=== PATIENT | female | born 1950 | race Caucasian/White ===

== ENCOUNTER 2017-06-18 12:44 | Outpatient (CLI) | payer MEDICARE, BC ==
--- NOTE | 2017-06-18 13:47 | MRI ---
MRI OF THE RIGHT SHOULDER WITHOUT CONTRAST: INDICATIONS: Rotator cuff dysfunction. COMPARISON: None. TECHNIQUE: Routine noncontrast MR images were obtained of the right shoulder. FINDINGS: There is a high grade bursal surface tear involving the entirety of the supraspinatus, at the footpri nt, with anterior tendinous delamination into the infraspinatus, at the footprint. There is delamina tion of the infraspinatus back to the level of the musculotendinous junction. No muscular atrophy is evident. The glenohumeral articular surface is normal appearing. There is moderate tendinosis of t he intraarticular biceps tendon. There is moderate to severe AC joint osteoarthrosis with an inferio rly projecting osteophyte on the distal clavicular causing mild to moderate encroachment on the subja cent supraspinatus. The subscapularis is intact. The teres minor is intact. IMPRESSION: 1. High-grade bursal surface tear of the supraspinatus with intratendinous delamination into the inf raspinatus with extension of the delaminating tear back to the musculotendinous junction of the infra spinatus. 2. Moderate to severe acromioclavicular joint osteoarthrosis with mild to moderate encroachment. 3. Moderate biceps tendinosis. POS: TPC
== END 2017-06-18 12:45 | disposition home or self-care (01) ==
LOC: MRI 12:44
PROVIDERS: ATTEND Family Medicine
DX: M67.911 Unspecified disorder of synovium and tendon, right shoulder (principal); M19.011 Primary osteoarthritis, right shoulder; M75.21 Bicipital tendinitis, right shoulder; M75.101 Unspecified rotator cuff tear or rupture of right shoulder, not specified as traumatic

== ENCOUNTER 2017-11-21 12:18 | Outpatient (CLI) | payer MEDICARE, BC | END 2017-11-21 12:19 | disposition home or self-care (01) | LOC: BICMAMMO 12:18 | PROVIDERS: ATTEND Obstetrics & Gynecology | DX: Z12.31 Encounter for screening mammogram for malignant neoplasm of breast (principal) | CPT/HCPCS: 77063; 77067 ==

== ENCOUNTER 2018-02-13 08:14 | Outpatient (CLI) | payer MEDICARE, BC ==
--- NOTE | 2018-02-13 10:30 | BD ---
DEXA BONE DENSITY STUDY: HISTORY: Postmenopausal Lumbar Spine: BMD (g/cm2) L1 1.041 T-Score: +0.5 L2 1.140 T-Score: +1.0 L3 1.215 T-Score: +1.2 L4 1.192 T-Score: +1.2 L1-L4 1.148 T-Score: +0.9 Femoral Neck: 0.837 T-Score: -0.1 Total Femur: 1.062 T-Score: +1.0 Impression: 1. Normal bone mineral density of lumbar spine and left femoral neck. 2. Ten-year fracture major osteoporotic fracture is 6.9% and of hip fracture 0.3%. These fracture p robabilities are calculated for an untreated patient. POS: ALE
== END 2018-02-13 08:15 | disposition home or self-care (01) ==
LOC: BICMAMMO 08:14
PROVIDERS: ATTEND Family Medicine
DX: Z13.820 Encounter for screening for osteoporosis (principal); Z78.0 Asymptomatic menopausal state
CPT/HCPCS: 77080

== ENCOUNTER 2018-02-24 09:01 | Outpatient (CLI) | payer MEDICARE, BC ==
[2018-02-24 10:18] LABS: Hemoglobin 14.6 g/dL (12.0-16.0); Mean Corpuscular HGB CONC 33.7 g/dL (32.0-36.0); Mean Corpuscular Hemoglobin 30.1 pg (27.0-31.0); Mean Corpuscular Volume 89.1 fL (78.0-98.0); Mean Platelet Volume 7.4 fL (7.4-10.4); Platelet Count 137 thou/uL (130-400); RBC Distribution Width 13.3 % (11.5-14.5); Red Blood Cell (RBC) Count 4.85 mill/uL (4.20-5.40); White Blood Cell (WBC) Count 4.2 thou/uL (4.8-10.8)
[2018-02-24 10:39] LABS: Anion Gap 12 mmol/L (10-20); BUN (Urea Nitrogen) 17 mg/dL (9.8-20.1); Calc. Creatinine Clearance 0 mL/min (70-130); Calcium 10.2 mg/dL (7.8-10.44); Carbon Dioxide 28 mmol/L (23-31); Chloride 104 mmol/L (98-107); Estimated GFR-MDRD 61; Glucose 240 mg/dL (80-115); Potassium 4.4 mmol/L (3.5-5.1); Sodium 140 mmol/L (136-145)
[2018-02-24 10:45] LABS: INR-International Normal Ratio 1.1; PTT 30.4 SEC (22.9-36.1); Prothrombin Time 13.9 SEC (12.0-14.7)
== END 2018-02-24 09:02 | disposition home or self-care (01) ==
LOC: LABBT 09:01
PROVIDERS: ATTEND Surgery
DX: Z01.818 Encounter for other preprocedural examination (principal); M48.02 Spinal stenosis, cervical region; M54.12 Radiculopathy, cervical region
CPT/HCPCS: 80048; 85027; 85610; 85730; 87081; 93005; 93010

== ENCOUNTER 2018-03-03 05:46 | Day surgery (SDC) | payer MEDICARE, BC ==
[2018-02-24 09:12] VITALS: BMI 30.9
[2018-03-03] MEDS ORDERED: CEFAZOLIN/Water 2 GM/20 ML SYRINGE ONE (06:07)
[2018-03-03] MEDS ORDERED: Sodium Chloride 0.9% 10 ML ONE (06:31)
[2018-03-03] MEDS ORDERED: Thrombin 5000 UNITS/5 ML VIAL ONE (06:31)
[2018-03-03] MEDS ORDERED: Midazolam HCl 2 mg/2 ml Vial ONE (07:09)
[2018-03-03] MEDS ORDERED: Fentanyl 100 MCG/2 ML VIAL ONE ×3 (07:25→11:40)
[2018-03-03] MEDS ORDERED: Atropine Sulfate 0.4 mg/1 ml Vial ONE ×3 (07:47→16:31)
[2018-03-03] MEDS ORDERED: Atropine Sulfate 1 mg/10 ml Syringe ONE (07:47)
[2018-03-03] MEDS ORDERED: Promethazine HCl 25 MG/ML VIAL SLOW IVP PRN (09:19)
[2018-03-03] MEDS ORDERED: PACU-Morphine 4MG/ML VIAL SLOW IVP PRN (09:19)
[2018-03-03] MEDS ORDERED: Morphine Sulfate 2 MG/ML SYRINGE SLOW IVP PRN (09:19)
[2018-03-03] MEDS ORDERED: Promethazine HCl 25 MG/ML VIAL IM PRN ×2 (09:19→09:59)
[2018-03-03] MEDS ORDERED: Ondansetron HCl/PF 4 MG/2 ML Vial IVP PRN (09:19)
[2018-03-03] MEDS ORDERED: HYDROmorphone 2 MG/ML VIAL SLOW IVP PRN (09:19)
[2018-03-03] MEDS ORDERED: Meperidine HCl/PF 25 MG/ML VIAL SLOW IVP PRN (09:19)
[2018-03-03] MEDS ORDERED: Mag-Al 1200 mg/1200 mg/30 ML UDCUP PO PRN (09:59)
[2018-03-03] MEDS ORDERED: Fleet Enema 133 ML BOT PR PRN (09:59)
[2018-03-03] MEDS ORDERED: Acetaminophen 325 MG TAB PO PRN (09:59)
[2018-03-03] MEDS ORDERED: Milk Of Magnesia 30 ML UDCUP PO PRN (09:59)
[2018-03-03] MEDS ORDERED: Bisacodyl 10 MG SUPP PR PRN (09:59)
[2018-03-03] MEDS ORDERED: traMADol HCl 50 MG TAB PO PRN (09:59)
--- NOTE | 2018-03-03 12:32 | OP ---
DATE OF PROCEDURE: 03/03/2018 OR: OR #12. WOUND TYPE: Type 1 wound. SURGEON: Matt Nichole M.D. SR. UNIX SYSTEM ADMINISTRATOR: Clif Camarillo PA-C. PREPROCEDURE DIAGNOSES: Multilevel cervical stenosis with neural element compression resulting in ne ck and arm pain. POSTPROCEDURE DIAGNOSES: Multilevel cervical stenosis with neural element compression resulting in n leopoldo and arm pain. PROCEDURE: 1. Anterior C4-C5, C5-C6, C6-C7 diskectomies for decompression of spinal cord and nerve roots. 2. Placement of interbody spacers packed with local bone autograft obtained from same incision and a llograft, C4-C5, C5-C6, C6-C7 for arthrodesis. 3. Anterior cervical plate and screw fixation C4-C5, C6-C7. 4. Use of operative microscope for microdissection. DESCRIPTION OF PROCEDURE: After informed consent was obtained from the patient, the patient brought to OR 12. Proper patient pause and identification was carried out. She was placed under excellent e ndotracheal anesthesia and positioned supine on the OR table. All appropriate points were padded. W e identified the anterior C4, C5, C6, C7 segments. An anterior july obliquely was made over the righ t anterior region of the cervical spine and neck. This region was sterilely cleansed, prepared, and draped. Proper patient pause and identification was carried out. The wound was then opened with a c ombination of sharp, monopolar and blunt dissection. The anterior C4, C5, C6, C7 segments were expos ed proceeding through dissection lateral to the larynx, pharynx, trachea and esophagus and medial to the right carotid sheath. We identified the anterior C4, C5, C6, C7 segments. This region was expos ed fully and retractors placed to retract the longus colli muscles. We then performed distraction at C4-C5 following localization and the microscope was brought in the field for microdissection. Anter ior C4-C5 diskectomy was performed with decompression of spinal cord and C5 nerve roots. Endplates w ere prepared and interbody spacer of appropriate dimension was placed, packed with graft at C4-C5 art hrodesis. We then turned our attention at C5-C6 and distraction occurred there. Following release o f distraction at C4-C5 and distraction at C5-C6 allowed for diskectomy at C5-C6 with decompression of spinal cord and nerve roots C5-C6, preparation of the endplates at C5-C6. We then placed interbody spacer of appropriate dimension packed with graft for arthrodesis C5-C6. Finally, we released distra ction at C5-C6 and distracted C6-7 for decompression and to allow for a diskectomy at C6-C7 and had e xcellent decompression of the common dural tube and C7 nerve roots bilaterally as we had at all 3 lev els. Appropriate dimension spacer was packed with graft and placed at C6-C7 for arthrodesis. We the n removed the microscope and anterior cervical plate and screw fixation. The final tightening then o ccurred at C4, C5, C6, C7. Copious irrigation occurred throughout as did maximizing hemostasis. Wou nd was then closed in anatomic layers over a drain. The patient then emerged from anesthesia.
[2018-03-03] MEDS: Sodium Chloride 0.9% 1,000 ML IV SCH (14:09)
[2018-03-03] MEDS: CEFAZOLIN/Water 2 GM/20 ML SYRINGE SLOW IVP SCH ×2 (14:10→21:46)
[2018-03-03] MEDS: HumaLOG 300 UNITS/3 ML VIAL SC SCH ×2 (14:14→17:41)
[2018-03-03] MEDS: Acetaminophen/Codeine 30-300mg Tablet PO PRN ×2 (14:18→21:58)
[2018-03-03] MEDS ORDERED: Exenatide [Byetta] 10 MCG SC SCH (16:30)
[2018-03-03] MEDS ORDERED: Lidocaine 1% PF 5 ML VIAL ONE (16:31)
[2018-03-03] MEDS ORDERED: Ondansetron HCl/PF 4 MG/2 ML Vial ONE (16:31)
[2018-03-03] MEDS ORDERED: Metoclopramide HCl 10 MG/2 ML VIAL ONE (16:31)
[2018-03-03] MEDS ORDERED: Dexamethasone 20 MG/5 ML VIAL ONE (16:31)
[2018-03-03] MEDS ORDERED: PROPOFOL 200 MG/20 ML VIAL ONE (16:31)
[2018-03-03] MEDS ORDERED: PHENYLEPHRINE-NS 100 MCG/ML 10 ML SYRINGE ONE (16:31)
[2018-03-03] MEDS ORDERED: Glycopyrrolate 0.2 MG/ML 5 ML SYRINGE ONE (16:31)
[2018-03-03] MEDS: metFORMIN 500 MG TAB PO SCH (17:41)
[2018-03-03] MEDS: HYDROcodone/Acetaminophen 7.5/325 mg Tablet PO PRN (17:45)
[2018-03-03] MEDS: tiZANidine HCl 4 MG TAB PO PRN (17:45)
[2018-03-03] MEDS ORDERED: Rosuvastatin 20 MG TAB PO SCH (21:00)
[2018-03-03] MEDS ORDERED: Non-Formulary Item 1 EACH (Insulin Glargine,Hum.Rec.Anlog [Lantus Solostar] 50 UNIT) SC SCH (21:00)
[2018-03-03] MEDS: Carvedilol 3.125 MG TAB PO SCH (21:45)
[2018-03-03] MEDS: Insulin Glargine 50 UNITS in Pre-Filled Syringe 1 EACH SC SCH (21:46)
[2018-03-03] MEDS: HumaLOG 300 UNITS/3 ML VIAL SC PRN (21:47)
[2018-03-04] MEDS: tiZANidine HCl 4 MG TAB PO PRN ×2 (00:49→09:40)
[2018-03-04] MEDS: HYDROcodone/Acetaminophen 7.5/325 mg Tablet PO PRN ×2 (00:49→09:39)
[2018-03-04] MEDS: Sodium Chloride 0.9% 1,000 ML IV SCH ×2 (00:54→11:14)
[2018-03-04] MEDS: Acetaminophen/Codeine 30-300mg Tablet PO PRN (05:27)
[2018-03-04] MEDS: HumaLOG 300 UNITS/3 ML VIAL SC PRN (05:30)
[2018-03-04] MEDS ORDERED: Levothyroxine Sodium 25 MCG TAB PO SCH (06:00)
[2018-03-04] MEDS: CEFAZOLIN/Water 2 GM/20 ML SYRINGE SLOW IVP SCH (07:26)
[2018-03-04 08:21] VITALS: BP 107/66; TEMP 97.6
[2018-03-04] MEDS ORDERED: Multivit, Therapeutic 1 TAB PO SCH (09:00)
[2018-03-04] MEDS ORDERED: Alogliptin 25 MG TAB PO SCH (09:00)
[2018-03-04] MEDS ORDERED: Hydrochlorothiazide 25 MG TAB PO SCH (09:00)
[2018-03-04] MEDS ORDERED: Non-Formulary Item 1 EACH (Spironolact/Hydrochlorothiazid [Spironolactone-Hctz 25-25 Tab] PO SCH (09:00)
[2018-03-04] MEDS: Valsartan 80 MG TAB PO SCH ×2 (09:41→09:48)
[2018-03-04] MEDS: Carvedilol 3.125 MG TAB PO SCH ×2 (09:44→10:02)
[2018-03-04] MEDS: Spironolactone 25 MG TAB PO SCH ×2 (09:44→10:03)
[2018-03-04] MEDS: metFORMIN 500 MG TAB PO SCH (09:44)
[2018-03-04] MEDS: Insulin Glargine 50 UNITS in Pre-Filled Syringe 1 EACH SC SCH (11:07)
--- NOTE | 2018-03-04 11:16 | PRG ---
DATE OF SERVICE: 03/03/2018 SUBJECTIVE: Ms. Field is doing well postoperative day 1 C4-C7 ACDF. Her arm pain has resolved comp ared to before surgery. She has good strength with mild dysphonia. We will plan for dismissal. We went over intra and postoperative issues.
== END 2018-03-04 12:37 | disposition home or self-care (01) ==
LOC: SDC 05:46 → SURG B 12:12 → SDC 03-04 12:37
PROVIDERS: ATTEND Surgery
PROC: 0RG20A0 Fusion of 2 or more Cervical Vertebral Joints with Interbody Fusion Device, Anterior Approach, Anterior Column, Open Approach (ICD-10-PCS; principal; 2018-03-03)
PROC: 0RG2070 Fusion of 2 or more Cervical Vertebral Joints with Autologous Tissue Substitute, Anterior Approach, Anterior Column, Open Approach (ICD-10-PCS; 2018-03-03)
PROC: 0RT30ZZ Resection of Cervical Vertebral Disc, Open Approach (ICD-10-PCS; 2018-03-03)
DX: M48.02 Spinal stenosis, cervical region (principal); M54.12 Radiculopathy, cervical region; Z79.4 Long term (current) use of insulin; Z79.82 Long term (current) use of aspirin; Z79.899 Other long term (current) drug therapy
CPT/HCPCS: 20930; 20937; 22551; 22552 ×2; 22853 ×3; 76001; 82962; 96374; C1713 ×2; C1776; 36416; 96376; J0131; J0461; J1100; J2001; J2250; J2405; J2704; J2765; J3010; J3490

== ENCOUNTER 2018-04-06 15:12 | Outpatient (CLI) | payer MEDICARE, BC ==
--- NOTE | 2018-04-06 18:07 | RAD ---
FOUR VIEWS CERVICAL SPINE: History: Cervical radiculopathy. Follow up surgery. Comparison: None. FINDINGS: Pre dental space is normal. Odontoid process is intact. On the lateral projection there is no malalig nment. Mild hypertrophy of the facets are noted. Anterior fusion plates with transvertebral body screw at C4, C5, C6, and C7. No perihardware lucency. Disc prosthesis at C4-5, C5-6, and C6-7 levels. Cervicothoracic junction is unremarkable. IMPRESSION: Uncomplicated cervical fusion hardware. POS: ALE
== END 2018-04-06 15:13 | disposition home or self-care (01) ==
LOC: TBSIIMAG 15:12
PROVIDERS: ATTEND Surgery
DX: M48.02 Spinal stenosis, cervical region (principal); M54.2 Cervicalgia; M47.22 Other spondylosis with radiculopathy, cervical region; Z98.1 Arthrodesis status
CPT/HCPCS: 72040

== ENCOUNTER 2018-06-09 09:45 | Outpatient (CLI) | payer MEDICARE, BC ==
--- NOTE | 2018-06-09 12:11 | ULT ---
LEFT BREAST ULTRASOUND: HISTORY: Palpable abnormality at the 12 o'clock position of the left breast. CORRELATION: Mammogram from the same date. FINDINGS: Sonographic evaluation in the region of palpable concern at the 12 o'clock position of the left breas t demonstrates no abnormality. IMPRESSION: BI-RADS category 2-Benign findings. Return to annual mammographic screening. POS: OFF
== END 2018-06-09 09:46 | disposition home or self-care (01) ==
LOC: BICMAMMO 09:45
PROVIDERS: ATTEND Physician Assistant
DX: N63.20 Unspecified lump in the left breast, unspecified quadrant (principal)
CPT/HCPCS: 76642; 77065; G0279

== ENCOUNTER 2018-07-31 15:45 | Outpatient (CLI) | payer MEDICARE, BC ==
--- NOTE | 2018-07-31 16:20 | ULT ---
ULTRASOUND ABDOMEN LIMITED: (RIGHT UPPER QUADRANT) 07/31/2018 HISTORY: A 67-year-old female with right upper quadrant abdominal pain. FINDINGS: Gallbladder: Normal wall thickness. No gallstones, calculi, or pericholecystic fluid. Common duct: 4 mm. Liver: Diffusely slightly heterogeneous and slightly coarse echotexture, questionable for a fatty li [place]. Pancreas: At the ventral surface of the body of the pancreas, there is a tiny, 0.5 cm, round, hypoec hoic lesion, which is too small to definitively characterize, but has the appearance of a tiny cyst. Right kidney: No hydronephrosis. IMPRESSION: 1. No sonographic evidence of cholelithiasis, acute cholecystitis, or biliary obstruction. 2. Questionable hepatic steatosis. 3. Tiny, 0.5 cm cystic lesion at the body of the pancreas. Recommend follow-up CT of the abdomen wi th and without contrast (pancreas protocol) in six months. JER Echevarria POS: ALE
== END 2018-07-31 15:46 | disposition home or self-care (01) ==
LOC: ULT 15:45
PROVIDERS: ATTEND Physician Assistant
DX: R10.11 Right upper quadrant pain (principal); K86.89 Other specified diseases of pancreas
CPT/HCPCS: 36415; 76705; 80053; 82977; 83690; 85025

== ENCOUNTER 2018-08-17 07:43 | Outpatient (CLI) | payer MEDICARE, BC ==
--- NOTE | 2018-08-17 09:54 | CT ---
CT ABDOMEN WITH AND WITHOUT IV CONTRAST: HISTORY: Probable pancreatic cyst seen on gallbladder ultrasound of 07/31/2018. FINDINGS: There is a calcified granuloma in the right lung base. A calcified granuloma is also seen in the rig ht lobe of the liver. No calcified gallstones are seen. The spleen is enlarged measuring 16.5 cm in length. The adrenal glands and right kidney are normal. There is a small low-density lesion in the left kidney, likely cyst. No mass is seen in the pancreas. No pancreatic calcifications are noted. No pancreatic ductal dilat ation is noted. There are vascular calcifications without evidence of aneurysmal dilatation of the abdominal aorta. The small bowel loops are not abnormally dilated. There is inadequate distention of the colon. The possibility of wall thickening cannot be excluded. There are degenerative changes in the spine. IMPRESSION: 1. No evidence of pancreatic mass. 2. Old granulomatous disease. 3. Splenomegaly. 4. Probable small cyst in the left kidney. 5. Inadequate distention of the colon versus wall thickening. Colonoscopy would be helpful. POS: TPC
[2018-08-17] MEDS ORDERED: ISOVUE-370 76%-LOCM 1 ML ONE (11:56)
== END 2018-08-17 07:44 | disposition home or self-care (01) ==
LOC: BICCT 07:43
PROVIDERS: ATTEND Physician Assistant Medical
DX: K21.9 Gastro-esophageal reflux disease without esophagitis (principal); K86.2 Cyst of pancreas; R10.11 Right upper quadrant pain; R10.13 Epigastric pain; R11.2 Nausea with vomiting, unspecified; R16.1 Splenomegaly, not elsewhere classified
CPT/HCPCS: 74170; Q9966

== ENCOUNTER 2018-08-24 07:10 | Outpatient (CLI) | payer MEDICARE, BC ==
--- NOTE | 2018-08-24 10:44 | NM ---
FNuclear medicine parathyroid scan Sestamibi SPECT CT SPECT fusion: HISTORY: 67-year-old female with hyperparathyroidism, elevated serum calcium and PTH. TECHNIQUE: IV injection of 25.8 mCi of technetium 99m-sestamibi. Scintigraphy of head, neck, and upper chest obtained in 3 views, immediately, at 1 hour, and at [address] fusion performed at 1 hour. FINDINGS: Left lobe of the thyroid gland is either absent or very atrophic. Sestamibi uptake is present through out the right lobe and isthmus of the thyroid gland. On the washout images, no residual focus of upta ke is visualized to indicate parathyroid adenoma. No parathyroid adenoma is identified on the SPECT-C T fusion images. IMPRESSION: 1. No parathyroid adenoma identified. 2. Left lobe of thyroid gland is either absent or very atrophic.
== END 2018-08-24 07:11 | disposition home or self-care (01) ==
LOC: NM 07:10
PROVIDERS: ATTEND Internal Medicine Nephrology
DX: E83.52 Hypercalcemia (principal)
CPT/HCPCS: 78072; A9500

== ENCOUNTER 2018-09-24 09:52 | Outpatient (CLI) | payer MEDICARE, BC ==
--- NOTE | 2018-09-24 10:34 | RAD ---
2 VIEWS RIGHT HIP: Date: 09/24/18 PROVIDED CLINICAL HISTORY: Right hip pain. FINDINGS: No evidence for fracture or other acute osseous abnormality. Alignment appears anatomic. Right hip lucero int space appears preserved. IMPRESSION: No evidence for an acute osseous abnormality or significant arthropathy. POS: OFF
== END 2018-09-24 09:53 | disposition home or self-care (01) ==
LOC: RAD 09:52
PROVIDERS: ATTEND Nurse Practitioner Family
DX: M25.551 Pain in right hip (principal)

== ENCOUNTER 2019-02-11 07:11 | Outpatient (CLI) | payer MEDICARE, BC ==
--- NOTE | 2019-02-11 08:31 | CT ---
CT ABDOMEN AND PELVIS WITH AND WITHOUT IV CONTRAST 02/11/2019 CLINICAL INFORMATION: Pancreatic mass. COMPARISON: 08/17/2018 Technique: Multiple contiguous axial CT images are obtained through the abdomen and pelvis with IV contrast. Cor onal reformatted images are provided. FINDINGS: Lower Chest: Calcified granuloma is present at the right lung base. Lung bases are otherwise clear. Vessels: Vascular calcifications are seen in the abdominal aorta and iliac arteries. Abdomen: Portal vein:Patent Gallbladder: Within normal limits for CT imaging. Liver: Few calcified granulomata are seen in the right hepatic lobe. Spleen: Enlarged measuring 15 cm in craniocaudal dimensions. Pancreas: A 7 mm hypodense lesion is seen in the body of the pancreas. This is slightly larger in siz e when compared to the prior exam where this measured approximately 3 mm. No additional pancreatic lesion is seen. Adrenals: within normal limits. Kidneys: Subcentimeter too small to characterize hypodense lesions are again seen in each kidney stat istically likely representing cysts. Bowel: Loops of small bowel are normal in caliber. Small amount of retained fecal material seen throu ghout the colon. Appendix: The appendix is visualized and normal in caliber. Peritoneum: No ascites or free air; no fluid collection. Mesentery and Retroperitoneum: No enlarged mesenteric or retroperitoneal lymph nodes. Abdominal Wall: within normal limits. Pelvis: Reproductive Organs: Uterus is surgically absent. Pelvis within normal limits. Bladder: Decompressed but otherwise grossly within normal limits. Bones: Degenerative and postsurgical changes lumbar spine. IMPRESSION: 1. Slight interval enlargement of a hypodense cystic appearing lesion in the body the pancreas. This lesion measures 7 mm on today's examination. Follow-up CT examination in one year is recommended according to ACR white paper guidelines. 2. Splenomegaly. 3. Subcentimeter too small to characterize hypodense lesions in each kidney statistically likely repr esenting cysts. 4. Hysterectomy.
[2019-02-11] MEDS ORDERED: ISOVUE-370 76%-LOCM 1 ML ONE (18:11)
== END 2019-02-11 07:12 | disposition home or self-care (01) ==
LOC: BICCT 07:11
PROVIDERS: ATTEND Family Medicine
DX: K86.89 Other specified diseases of pancreas (principal); R16.1 Splenomegaly, not elsewhere classified; K86.2 Cyst of pancreas; N28.9 Disorder of kidney and ureter, unspecified; Z90.710 Acquired absence of both cervix and uterus
CPT/HCPCS: 74178; 82565; Q9966

== ENCOUNTER 2019-05-28 19:22 | Emergency (ER) | payer MEDICARE, BC ==
--- NOTE | 2019-05-28 19:47 | RAD ---
Chest AP view INDICATION: Chest pain COMPARISON: September 21, 2014 FINDINGS: Lungs:The lungs are clear Cardiac silhouette:The cardiomediastinal silhouette appears within normal limits. Pulmonary vasculature:Normal Pleural spaces:No pleural effusion or pneumothorax is demonstrated. Upper abdomen:No abnormality seen. Osseous structures: No acute osseous abnormality. Interval ACDF of the lower cervical spine. Additional findings:None. IMPRESSION: No acute cardiopulmonary abnormality.
[2019-05-28 19:48] LABS: #Eosinphils 0.1 thou/uL (0.0-0.7); #Lymphocytes 1.2 thou/uL (1.20-3.40); #Monocytes 0.6 thou/uL (0.11-0.59); #Neutrophils 3.9 thou/uL (1.40-6.50); %Basophils 0.7 % (0.0-1.0); %Eosinophils 2.4 % (0.0-10.0); %Lymphocytes 20.9 % (21.0-51.0); %Monocytes 9.7 % (0.0-10.0); %Neutrophils 66.3 % (42.0-75.0); Mean Corpuscular HGB CONC 34.6 g/dL (32.0-36.0); Mean Corpuscular Hemoglobin 30.3 pg (27.0-31.0); Mean Corpuscular Volume 87.6 fL (78.0-98.0); Mean Platelet Volume 6.9 fL (7.4-10.4); Platelet Count 128 thou/uL (130-400); Red Blood Cell (RBC) Count 4.31 mill/uL (4.20-5.40); White Blood Cell (WBC) Count 5.8 thou/uL (4.8-10.8)
[2019-05-28 20:13] LABS: ALT (SGPT) 18 U/L (8-55); AST (SGOT) 19 U/L (5-34); Albumin 4.7 g/dL (3.4-4.8); Alkaline Phosphatase 84 U/L (40-110); Anion Gap 13 mmol/L (10-20); BUN (Urea Nitrogen) 17 mg/dL (9.8-20.1); Bilirubin, Total 0.6 mg/dL (0.2-1.2); Calc. Creatinine Clearance 0 mL/min (70-130); Calcium 10.5 mg/dL (7.8-10.44); Carbon Dioxide 27 mmol/L (23-31); Chloride 101 mmol/L (98-107); Estimated GFR-MDRD 49; Globulin 2.9 g/dL (2.4-3.5); Glucose 253 mg/dL (80-115); Potassium 4.9 mmol/L (3.5-5.1); Protein, Total 7.6 g/dL (6.0-8.3); Sodium 136 mmol/L (136-145)
--- NOTE | 2019-06-05 12:38 | EKG ---
Test Reason : Blood Pressure : / mmHG Vent. Rate : 067 BPM Atrial Rate : 067 BPM P-R Int : 134 ms QRS Dur : 086 ms QT Int : 394 ms P-R-T Axes : 059 023 035 degrees QTc Int : 416 ms Normal sinus rhythm Normal ECG Confirmed by JEAN SANCHEZ M.D. ([id number]), subeditor KRIS HOFFMANN ([id number]) on 06/05/2019 12:38:18 PM Referred By: Confirmed By:JENA SANCHEZ M.D.
== END 2019-05-28 21:31 | disposition home or self-care (01) ==
LOC: ERS 19:22
DX: R07.2 Precordial pain (principal); R00.2 Palpitations; I10 Essential (primary) hypertension; E11.9 Type 2 diabetes mellitus without complications; E78.5 Hyperlipidemia, unspecified; E78.1 Pure hyperglyceridemia; Z79.82 Long term (current) use of aspirin; Z79.4 Long term (current) use of insulin; Z79.899 Other long term (current) drug therapy
CPT/HCPCS: 36415; 71045; 80053; 83880; 84484; 85025; 93005

== ENCOUNTER 2020-02-24 08:36 | Outpatient (CLI) | payer MEDICARE, BC ==
--- NOTE | 2020-02-24 11:20 | CT ---
CT ABDOMEN WITH AND WITHOUT CONTRAST CT ABDOMEN AND PELVIS WITH IV CONTRAST: Date: 02/24/2020 Axial tomograms obtained through the abdomen pre and post IV contrast. An arterial phase image throug h the abdomen was obtained with contrast and the delayed portal venous phase exam performed through a bdomen and pelvis. INDICATION: Follow-up pancreatic mass. Comparison made to CT abdomen and pelvis dated 02/11/2019 and 08/17/2018. Ultrasound exam of 08/01/19. The ultrasound described at 5.0 mm cystic lesion in the body of the pancreas. Previous CT of 08/18/19 and 02/11/2019 confirmed a tiny cyst along the anterior border of the body of the pancreas measuri ng 6-7 mm on the 02/11/2019 study. FINDINGS: The tiny low density cystic lesion along the anterior body of the pancreas is again seen. This is bes t appreciated in the arterial phase study. It again measures in the 6-7 mm range today and is unchang ed. Liver and spleen otherwise unremarkable and stable. Lung bases clear. Adrenal glands and kidneys unremarkable. Low density cystic lesions in the kidneys appear stable. Small and large bowel loops unremarkable. Aorta normal caliber with mild atherosclerotic change. No adenopathy. Images through the pelvis are unremarkable. Evidence of hysterectomy. Osseous structures unremarkable. Degenerative changes at L5-S1. IMPRESSION: 1. The small pancreatic cystic lesion along the anterior body of the pancreas is stable. 2. CT abdomen and pelvis otherwise unremarkable and unchanged. POS: AGW
[2020-02-24] MEDS ORDERED: Iopamidol-370 76% 500 ML 1 ML ONE (12:52)
== END 2020-02-24 08:37 | disposition home or self-care (01) ==
LOC: BICCT 08:36
PROVIDERS: ATTEND Family Medicine
DX: K86.89 Other specified diseases of pancreas (principal); K86.2 Cyst of pancreas
CPT/HCPCS: 74178; Q9967

== ENCOUNTER 2020-04-13 14:06 | Emergency (ER) | payer MEDICARE, BC ==
[2020-04-13] MEDS ORDERED: Ketorolac Tromethamine 30 MG/ML VIAL ONE (14:21)
--- NOTE | 2020-04-13 14:34 | RAD ---
EXAM: 3 views of the left second toe HISTORY: Toe pain after stubbing on concrete COMPARISON: None FINDINGS: The lateral view is limited secondary to motion artifact. There is no evidence of acute fra cture or dislocation. Mild soft tissue swelling is seen. No degenerative changes are present. No radiopaque foreign body is seen. IMPRESSION: No evidence of acute osseous abnormality.
== END 2020-04-13 15:05 | disposition home or self-care (01) ==
LOC: ERS 14:06
DX: S90.122A Contusion of left lesser toe(s) without damage to nail, initial encounter (principal); W22.8XXA Striking against or struck by other objects, initial encounter
CPT/HCPCS: 96372; J1885

== ENCOUNTER 2020-11-22 09:55 | Outpatient (CLI) | payer MEDICARE, BC | END 2020-11-22 09:56 | disposition home or self-care (01) | LOC: BICRAD 09:55 | PROVIDERS: ATTEND Nurse Practitioner Family | DX: M47.812 Spondylosis without myelopathy or radiculopathy, cervical region (principal); M48.02 Spinal stenosis, cervical region; Z98.890 Other specified postprocedural states | CPT/HCPCS: 72052 ==

== ENCOUNTER 2021-03-06 14:21 | Outpatient (CLI) | payer MEDICARE, BC | END 2021-03-06 14:22 | disposition home or self-care (01) | LOC: BICRAD 14:21 | PROVIDERS: ATTEND Physician Assistant | DX: R06.02 Shortness of breath (principal); R07.89 Other chest pain | CPT/HCPCS: 36415; 71046; 80053; 83880; 85025; 85379 ==

== ENCOUNTER 2021-03-15 13:11 | Outpatient (CLI) | payer MEDICARE, BC ==
[~2021-03-15 13:11] MED LIST: Iopamidol-370 76% 500 ML 1 ML ONE
== END 2021-03-15 13:12 | disposition home or self-care (01) ==
LOC: BICCT 13:11
PROVIDERS: ATTEND Internal Medicine Cardiovascular Disease
DX: R06.02 Shortness of breath (principal)
CPT/HCPCS: 71260

== ENCOUNTER 2021-05-08 16:30 | Outpatient (CLI) | payer MEDICARE, BC | END 2021-05-08 16:31 | disposition home or self-care (01) | LOC: SLEEPLAB 16:30 | PROVIDERS: ATTEND Internal Medicine Pulmonary Disease | DX: G47.33 Obstructive sleep apnea (adult) (pediatric) (principal); K21.9 Gastro-esophageal reflux disease without esophagitis; G47.00 Insomnia, unspecified | CPT/HCPCS: 95806 ==

== ENCOUNTER 2021-05-29 19:00 | Outpatient (CLI) | payer MEDICARE, BC | END 2021-05-29 19:01 | disposition home or self-care (01) | LOC: SLEEPLAB 19:00 | PROVIDERS: ATTEND Internal Medicine Pulmonary Disease | DX: R06.89 Other abnormalities of breathing (principal); G47.33 Obstructive sleep apnea (adult) (pediatric); R53.83 Other fatigue; J44.9 Chronic obstructive pulmonary disease, unspecified; R06.83 Snoring; G47.10 Hypersomnia, unspecified; E66.9 Obesity, unspecified; Z68.35 Body mass index [BMI] 35.0-35.9, adult | CPT/HCPCS: 95810 ==

== ENCOUNTER 2021-07-04 15:00 | Inpatient (IN) | payer MEDICARE, BC ==
[2021-07-04 11:53] VITALS: BMI 34.3
[2021-07-04 15:54] LABS: #Eosinphils 0.1 10x3/uL (0.0-0.5); #Monocytes 0.7 10x3/uL (0.0-1.1); %Basophils 0.4 % (0.0-2.0); %Eosinophils 2.6 % (0.0-6.0); %Lymphocytes 26.7 % (18.0-47.0); %Monocytes 13.6 % (0.0-10.0); %Neutrophils 56.3 % (40.0-75.0); Hemoglobin 14.2 g/dL (12.0-15.5); Mean Corpuscular HGB CONC 32.6 g/dL (32.0-36.0); Mean Corpuscular Hemoglobin 29.1 pg (27.0-33.0); Mean Corpuscular Volume 89.1 fl (81.6-98.3); Mean Platelet Volume 9.5 fl (7.4-10.4); Platelet Count 121 10x3/uL (150-450); RBC Distribution Width 14.9 % (11.5-14.5); Red Blood Cell (RBC) Count 4.88 10x6/uL (3.90-5.03); White Blood Cell (WBC) Count 5.3 10x3/uL (3.5-10.5)
[2021-07-04 15:57] LABS: Bilirubin Neg (Negative); Blood, Urine Negative (Negative); Clarity Clear (Clear); Glucose, Urine (Dipstick) >=1000 mg/dL (Negative); Ketone, Urine Negative (Negative); Leukocyte 25 (Negative); Nitrite Negative (Negative); Protein, Urine (Dipstick) Negative (Neg-Trace); Specific Gravity, Urine 1.015 (1.002-1.036); Urobilinogen Normal mg/dL (Less than 2)
[2021-07-04 16:20] LABS: Anion Gap 16 mmol/L (10-20); BUN (Urea Nitrogen) 21 mg/dL (9.8-20.1); Calc. Creatinine Clearance 0 mL/min (70-130); Calcium 9.9 mg/dL (7.8-10.44); Carbon Dioxide 27 mmol/L (23-31); Chloride 103 mmol/L (98-107); Glucose 182 mg/dL (83-110); Sodium 142 mmol/L (136-145)
[2021-07-04 16:28] LABS: Prothrombin Time 10.9 sec (9.5-12.1)
[2021-07-04 23:28] LABS: SARS-CoV-2 PCR by NAA Not Detected (NotDetected)
[2021-07-09] MEDS ORDERED: Fentanyl 250 MCG/5 ML VIAL ONE ×3 (06:11→09:02)
[2021-07-09] MEDS ORDERED: Sodium Chloride 0.9% 100 ML ONE (06:12)
[2021-07-09] MEDS ORDERED: Tranexamic Acid 1,000 MG/10 ML VIAL ONE ×2 (06:12→09:03)
[2021-07-09] MEDS ORDERED: Bupivacaine PF 0.5% 30 ML VIAL ONE (06:29)
[2021-07-09] MEDS ORDERED: Vancomycin 1.5 GRAM/300 ML BAG 1.5 GM in Premix Bag 1 BAG IVPB SCH ×2 (06:30→18:00)
[2021-07-09] MEDS ORDERED: Promethazine HCl 25 MG/ML VIAL IM PRN ×3 (06:38→08:15)
[2021-07-09] MEDS ORDERED: Ondansetron HCl/PF 4 MG/2 ML Vial IVP PRN (06:38)
[2021-07-09] MEDS ORDERED: Midazolam HCl 2 mg/2 ml Vial ONE (06:38)
[2021-07-09] MEDS ORDERED: Promethazine HCl 25 MG/ML VIAL IVPB PRN (06:38)
[2021-07-09] MEDS ORDERED: ceFAZolin 2 GM/DEX 5% 100 ML BAG ONE (06:58)
[2021-07-09] MEDS ORDERED: PROPOFOL 200 MG/20 ML VIAL ONE (07:05)
[2021-07-09] MEDS ORDERED: Dexamethasone 20 MG/5 ML VIAL ONE (07:05)
[2021-07-09] MEDS ORDERED: ePHEDrine 50 MG/ML VIAL ONE (07:05)
[2021-07-09] MEDS ORDERED: Bupivacaine HCl 0.5%/Epinephrine 1:200,000/PF 30 ml Vial ONE (07:05)
[2021-07-09] MEDS ORDERED: Ondansetron PF 4 MG/2 ML Vial ONE (07:05)
[2021-07-09] MEDS ORDERED: PHENYLEPHRINE-NS 100 MCG/ML 10 ML SYRINGE ONE (07:05)
[2021-07-09] MEDS ORDERED: Lidocaine 1% PF 5 ML VIAL ONE (07:05)
[2021-07-09] MEDS ORDERED: Fentanyl 100 MCG/2 ML VIAL SLOW IVP PRN (07:21)
[2021-07-09] MEDS ORDERED: Zolpidem Tartrate 5 MG TAB PO PRN ×2 (07:21→08:15)
[2021-07-09] MEDS ORDERED: HYDROcodone/Acetaminophen 10/325 mg Tablet PO PRN ×2 (07:21)
[2021-07-09] MEDS ORDERED: Acetaminophen 325 MG TAB PO PRN (07:21)
[2021-07-09] MEDS ORDERED: diphenhydrAMINE 25 MG CAP PO PRN (07:21)
[2021-07-09] MEDS ORDERED: Ondansetron PF 4 MG/2 ML Vial IVP PRN ×2 (07:21→08:15)
[2021-07-09] MEDS ORDERED: traMADol HCl 50 MG TAB PO PRN ×3 (07:21→08:15)
[2021-07-09] MEDS ORDERED: ACETAMINOPHEN PO PRN (07:24)
[2021-07-09] MEDS ORDERED: [UNRECOGNIZED DRUG - OTHER] PO PRN (07:24)
[2021-07-09] MEDS ORDERED: Non-Formulary Item 1 EACH (Pregabalin [Lyrica] 200 MG Capsule) PO PRN (07:24)
[2021-07-09] MEDS ORDERED: OXYCODONE HCL PO PRN (07:24)
[2021-07-09] MEDS ORDERED: Non-Formulary Item 1 EACH (Dulaglutide [Trulicity] 1.5 MG/0.5 ML Pen.Injctr) SC SCH (07:30)
[2021-07-09] MEDS ORDERED: Tranexamic Acid 1,000 MG in Sodium Chloride 0.9% 100 ML IVPB SCH (07:30)
[2021-07-09] MEDS ORDERED: Vancomycin HCl 1.5 GM in Sodium Chloride 0.9% 250 ML 300 ML IVPB SCH (07:30)
[2021-07-09] MEDS ORDERED: oxyCODONE/Acetaminophen 5 mg/325 mg Tablet PO PRN ×2 (07:40→08:01)
[2021-07-09] MEDS ORDERED: Pregabalin 50 MG CAP PO PRN (07:41)
[2021-07-09] MEDS ORDERED: HumaLOG 300 UNITS/3 ML VIAL SC SCH (08:00)
[2021-07-09] MEDS ORDERED: Ropivacaine 0.2% 550 ML 550 ML NERVE BLCK SCH (08:15)
[2021-07-09] MEDS ORDERED: Non-Formulary Item 1 EACH (Dapagliflozin Propanediol [Farxiga] 10 MG Tablet) PO SCH (09:00)
[2021-07-09] MEDS ORDERED: Cholecalciferol 1,000 UNITS (25 MCG) TAB PO SCH (09:00)
[2021-07-09] MEDS ORDERED: Non-Formulary Item 1 EACH (Lansoprazole [Prevacid] 30 MG Capsule.Dr) PO SCH (09:00)
[2021-07-09] MEDS ORDERED: IRBESARTAN 300 MG PO SCH (09:00)
[2021-07-09] MEDS ORDERED: Dulaglutide [Trulicity] 1.5 MG/0.5 ML Pen.Injctr SC SCH (09:00)
[2021-07-09] MEDS ORDERED: Carvedilol 3.125 MG TAB PO SCH (09:00)
[2021-07-09] MEDS ORDERED: Non-Formulary Item 1 EACH (Omega-3 Acid Ethyl Esters [Lovaza] 1 GM Capsule) PO SCH (09:00)
[2021-07-09] MEDS ORDERED: Non-Formulary Item 1 EACH (Mirabegron [Myrbetriq] 50 MG Tab.Er.24h) PO SCH (09:00)
[2021-07-09] MEDS: Cholecalciferol 1,000 UNITS (25 MCG) TAB PO SCH (11:43)
[2021-07-09] MEDS: Empagliflozin 25 MG TAB PO SCH (11:43)
[2021-07-09] MEDS: Aspirin 81 mg Enteric Coated Tablet PO SCH ×2 (11:43→22:22)
[2021-07-09] MEDS: Carvedilol 25 MG TAB PO SCH ×2 (11:43→22:22)
[2021-07-09] MEDS: Ferrous Gluconate 324 MG TAB PO SCH ×2 (11:44→22:22)
[2021-07-09] MEDS: Levothyroxine Sodium 25 MCG TAB PO SCH (11:44)
[2021-07-09] MEDS: Fish Oil 1,000 MG CAP PO SCH ×2 (11:44→22:23)
[2021-07-09] MEDS: Hydrochlorothiazide 25 MG TAB PO SCH (11:44)
[2021-07-09] MEDS: Multivitamin W/ Minerals 1 TAB PO SCH (11:53)
[2021-07-09] MEDS: Losartan 25 MG TAB PO SCH (11:53)
[2021-07-09] MEDS: Senokot S 8.6-50 MG TAB PO SCH ×2 (11:54→22:23)
[2021-07-09] MEDS: Torsemide 10 MG TAB PO SCH (11:55)
[2021-07-09] MEDS: HumaLOG 300 UNITS/3 ML VIAL SC SCH ×3 (11:57→18:25)
[2021-07-09] MEDS ORDERED: Dextrose 5% in Water 1,000 ML IV PRN ×2 (12:15→21:23)
[2021-07-09] MEDS ORDERED: Dextrose 50% Abboject 50 ML SYRINGE IVP PRN (12:15)
[2021-07-09] MEDS: Sodium Chloride 0.9% 1,000 ML IV SCH ×2 (12:32→18:25)
[2021-07-09] MEDS: Ketorolac Tromethamine 30 MG/ML VIAL IVP SCH ×2 (12:32→18:25)
[2021-07-09] MEDS: oxyCODONE/Acetaminophen 5 mg/325 mg Tablet PO PRN ×2 (12:36→17:01)
[2021-07-09] MEDS ORDERED: ceFAZolin 2 GM/Dextrose 50 ML 2 GM in Premix Bag 1 BAG IVPB SCH (14:00)
[2021-07-09] MEDS: CEFAZOLIN 2 GM in Sodium Chloride 0.9% 100 ML IVPB SCH (16:58)
[2021-07-09] MEDS: metFORMIN 500 MG TAB PO SCH (18:24)
[2021-07-09] MEDS ORDERED: Dextrose 50% Abboject 50 ML SYRINGE SLOW IVP PRN (21:23)
[2021-07-09] MEDS ORDERED: Melatonin 3 MG TAB PO PRN (21:29)
[2021-07-09] MEDS: Rosuvastatin 20 MG TAB PO SCH (22:23)
[2021-07-09] MEDS ORDERED: hydrALAZINE 20 MG/ML VIAL SLOW IVP PRN (22:27)
[2021-07-10] MEDS: Ketorolac Tromethamine 30 MG/ML VIAL IVP SCH ×4 (00:05→17:58)
[2021-07-10] MEDS: CEFAZOLIN 2 GM in Sodium Chloride 0.9% 100 ML IVPB SCH (00:05)
[2021-07-10] MEDS: oxyCODONE/Acetaminophen 5 mg/325 mg Tablet PO PRN ×3 (04:55→22:16)
[2021-07-10] MEDS: Sodium Chloride 0.9% 1,000 ML IV SCH (05:24)
[2021-07-10 07:34] LABS: Hemoglobin 11.7 g/dL (12.0-16.0); Mean Corpuscular HGB CONC 33.2 g/dL (32.0-36.0); Mean Corpuscular Volume 90.3 fL (78.0-98.0); Mean Platelet Volume 7.2 fL (7.4-10.4); Platelet Count 100 thou/uL (130-400); RBC Distribution Width 14.1 % (11.5-14.5); Red Blood Cell (RBC) Count 3.89 mill/uL (4.20-5.40); White Blood Cell (WBC) Count 7.2 thou/uL (4.8-10.8)
[2021-07-10] MEDS: HumaLOG 300 UNITS/3 ML VIAL SC SCH ×3 (09:14→18:00)
[2021-07-10] MEDS: Empagliflozin 25 MG TAB PO SCH (09:18)
[2021-07-10] MEDS: Cholecalciferol 1,000 UNITS (25 MCG) TAB PO SCH (09:18)
[2021-07-10] MEDS: Senokot S 8.6-50 MG TAB PO SCH ×2 (09:19→21:31)
[2021-07-10] MEDS: Levothyroxine Sodium 25 MCG TAB PO SCH (09:20)
[2021-07-10] MEDS: Ferrous Gluconate 324 MG TAB PO SCH ×2 (09:21→21:32)
[2021-07-10] MEDS: Losartan 25 MG TAB PO SCH (09:21)
[2021-07-10] MEDS: Fish Oil 1,000 MG CAP PO SCH ×2 (09:22→21:31)
[2021-07-10] MEDS: Hydrochlorothiazide 25 MG TAB PO SCH (09:22)
[2021-07-10] MEDS: Carvedilol 25 MG TAB PO SCH ×2 (09:22→21:33)
[2021-07-10] MEDS: Multivitamin W/ Minerals 1 TAB PO SCH (09:22)
[2021-07-10] MEDS: Torsemide 10 MG TAB PO SCH (09:22)
[2021-07-10] MEDS: metFORMIN 500 MG TAB PO SCH (17:58)
[2021-07-10] MEDS ORDERED: Heparin 5,000 UNITS/ML VIAL SC SCH (21:00)
[2021-07-10] MEDS: Rosuvastatin 20 MG TAB PO SCH (21:32)
[2021-07-10] MEDS: Aspirin 81 mg Enteric Coated Tablet PO SCH (21:33)
[2021-07-11] MEDS: Ketorolac Tromethamine 30 MG/ML VIAL IVP SCH ×2 (02:20→06:40)
[2021-07-11] MEDS: oxyCODONE/Acetaminophen 5 mg/325 mg Tablet PO PRN ×5 (02:53→20:22)
[2021-07-11] MEDS: Fentanyl 100 MCG/2 ML VIAL IV PRN ×2 (03:12→05:54)
[2021-07-11 05:47] LABS: Hemoglobin 11.6 g/dL (12.0-16.0); Mean Corpuscular HGB CONC 33.1 g/dL (32.0-36.0); Mean Corpuscular Hemoglobin 30.5 pg (27.0-31.0); Mean Platelet Volume 7.2 fL (7.4-10.4); Platelet Count 97 thou/uL (130-400); RBC Distribution Width 14.3 % (11.5-14.5); Red Blood Cell (RBC) Count 3.82 mill/uL (4.20-5.40); White Blood Cell (WBC) Count 5.1 thou/uL (4.8-10.8)
[2021-07-11 05:57] LABS: Anion Gap 11 mmol/L (10-20); BUN (Urea Nitrogen) 23 mg/dL (9.8-20.1); Calc. Creatinine Clearance 83 mL/min (70-130); Calcium 9.1 mg/dL (7.8-10.44); Carbon Dioxide 26 mmol/L (23-31); Chloride 107 mmol/L (98-107); Glucose 246 mg/dL (83-110); Potassium 3.9 mmol/L (3.5-5.1); Sodium 140 mmol/L (136-145)
[2021-07-11 06:32] LABS: Band 2 % (5-11); Eosinophils 3 % (0-10); Lymphocytes 16 % (21-51); MDiff Complete? YES; Monocytes 6 % (0-10); Neutrophil 73 % (42-75); Platelet Morphology Comment Appears Decreased; RBC Morphology Normal
[2021-07-11] MEDS ORDERED: Docusate 100 MG CAP PO PRN (07:42)
[2021-07-11] MEDS ORDERED: Polyethylene Glycol 3350 17 GM Packet PO PRN (07:42)
[2021-07-11] MEDS: HumaLOG 300 UNITS/3 ML VIAL SC SCH ×3 (08:03→17:43)
[2021-07-11] MEDS: Fish Oil 1,000 MG CAP PO SCH ×2 (09:34→20:21)
[2021-07-11] MEDS: Hydrochlorothiazide 25 MG TAB PO SCH (09:35)
[2021-07-11] MEDS: Meloxicam 15 MG TAB PO SCH (09:35)
[2021-07-11] MEDS: Losartan 25 MG TAB PO SCH (09:36)
[2021-07-11] MEDS: Torsemide 10 MG TAB PO SCH (09:37)
[2021-07-11] MEDS: Carvedilol 25 MG TAB PO SCH ×2 (09:37→20:22)
[2021-07-11] MEDS: Cholecalciferol 1,000 UNITS (25 MCG) TAB PO SCH (09:37)
[2021-07-11] MEDS: Ferrous Gluconate 324 MG TAB PO SCH ×2 (09:38→20:22)
[2021-07-11] MEDS: Levothyroxine Sodium 25 MCG TAB PO SCH (09:38)
[2021-07-11] MEDS: Senokot S 8.6-50 MG TAB PO SCH ×2 (09:38→20:22)
[2021-07-11] MEDS: Multivitamin W/ Minerals 1 TAB PO SCH (09:38)
[2021-07-11] MEDS: Empagliflozin 25 MG TAB PO SCH (09:39)
[2021-07-11] MEDS: Aspirin 81 mg Enteric Coated Tablet PO SCH (20:22)
[2021-07-11] MEDS: Rosuvastatin 20 MG TAB PO SCH (20:22)
[2021-07-12] MEDS: oxyCODONE/Acetaminophen 5 mg/325 mg Tablet PO PRN ×3 (02:24→12:29)
[2021-07-12 05:17] LABS: Hemoglobin 11.7 g/dL (12.0-16.0); Mean Corpuscular HGB CONC 33.8 g/dL (32.0-36.0); Mean Corpuscular Hemoglobin 30.9 pg (27.0-31.0); Mean Corpuscular Volume 91.2 fL (78.0-98.0); Mean Platelet Volume 7.2 fL (7.4-10.4); Platelet Count 105 thou/uL (130-400); RBC Distribution Width 14.2 % (11.5-14.5); White Blood Cell (WBC) Count 5.1 thou/uL (4.8-10.8)
[2021-07-12] MEDS: HumaLOG 300 UNITS/3 ML VIAL SC SCH (08:09)
[2021-07-12] MEDS: Fish Oil 1,000 MG CAP PO SCH (08:10)
[2021-07-12] MEDS: Losartan 25 MG TAB PO SCH (08:11)
[2021-07-12] MEDS: Levothyroxine Sodium 25 MCG TAB PO SCH (08:11)
[2021-07-12] MEDS: Multivitamin W/ Minerals 1 TAB PO SCH (08:11)
[2021-07-12] MEDS: Cholecalciferol 1,000 UNITS (25 MCG) TAB PO SCH (08:12)
[2021-07-12] MEDS: Ferrous Gluconate 324 MG TAB PO SCH (08:13)
[2021-07-12] MEDS: Meloxicam 15 MG TAB PO SCH (08:13)
[2021-07-12] MEDS: Senokot S 8.6-50 MG TAB PO SCH (08:13)
[2021-07-12] MEDS: Carvedilol 25 MG TAB PO SCH (08:13)
[2021-07-12] MEDS: Torsemide 10 MG TAB PO SCH (08:14)
[2021-07-12] MEDS: Empagliflozin 25 MG TAB PO SCH (08:14)
[2021-07-12] MEDS ORDERED: Docusate 100 MG CAP PO SCH ×2 (10:45→21:00)
[2021-07-12 11:57] VITALS: BP 112/64; TEMP 98
[2021-07-13] MEDS ORDERED: Polyethylene Glycol 3350 17 GM Packet PO SCH (09:00)
== END 2021-07-12 13:36 | disposition home or self-care (01) | DRG 470 ==
LOC: INTOOBSV 07-09 05:27 → SURG A 07-09 05:27 → OBSVTOIN 07-11 16:02
PROVIDERS: ADMIT Orthopaedic Surgery; ATTEND Internal Medicine
PROC: 0SRD0J9 Replacement of Left Knee Joint with Synthetic Substitute, Cemented, Open Approach (ICD-10-PCS; principal; 2021-07-09)
DX: M17.12 Unilateral primary osteoarthritis, left knee (principal); Z20.822 Contact with and (suspected) exposure to COVID-19; M25.762 Osteophyte, left knee; I10 Essential (primary) hypertension; E78.5 Hyperlipidemia, unspecified; E11.9 Type 2 diabetes mellitus without complications; E03.9 Hypothyroidism, unspecified; Z88.1 Allergy status to other antibiotic agents; Z79.899 Other long term (current) drug therapy; Z79.84 Long term (current) use of oral hypoglycemic drugs; Z79.82 Long term (current) use of aspirin; Z79.4 Long term (current) use of insulin
CPT/HCPCS: 36415; 36416; 80048; 81003; 85025; 85027; 85610; 86850; 86900; 86901; 87081; 96365; 96375; 96376; A4306; C1713; C1776; G0378; J0690; J1100; J1815; J1885; J2250; J2405; J2704; J2795; J3010; J3370; J3490; J7050; S0020; U0003; U0005

== ENCOUNTER 2022-02-01 12:23 | Outpatient (CLI) | payer MEDICARE, BC | END 2022-02-01 12:24 | disposition home or self-care (01) | LOC: TBSIIMAG 12:23 | PROVIDERS: ATTEND Anesthesiology Pain Medicine | DX: M47.26 Other spondylosis with radiculopathy, lumbar region (principal); M47.817 Spondylosis without myelopathy or radiculopathy, lumbosacral region | CPT/HCPCS: 72148 ==

== ENCOUNTER 2022-05-08 09:52 | Observation (INO) | payer MEDICARE, BC ==
[2022-05-08 10:38] LABS: #Lymphocytes 0.8 thou/uL (1.20-3.40); #Monocytes 0.7 thou/uL (0.11-0.59); #Neutrophils 4.7 thou/uL (1.40-6.50); %Eosinophils 0.3 % (0.0-10.0); %Lymphocytes 12.6 % (21.0-51.0); %Monocytes 10.5 % (0.0-10.0); %Neutrophils 76.6 % (42.0-75.0); Hemoglobin 14.4 g/dL (12.0-16.0); Mean Corpuscular HGB CONC 33.4 g/dL (32.0-36.0); Mean Corpuscular Hemoglobin 29.9 pg (27.0-31.0); Mean Corpuscular Volume 89.6 fl (78.0-98.0); Mean Platelet Volume 7.6 fL (7.4-10.4); Platelet Count 99 10x3/uL (130-400); Red Blood Cell (RBC) Count 4.81 mill/uL (4.20-5.40); White Blood Cell (WBC) Count 6.2 10x3/uL (4.8-10.8)
[2022-05-08 10:45] LABS: ALT (SGPT) 17 U/L (8-55); AST (SGOT) 20 U/L (5-34); Albumin 4.5 g/dL (3.4-4.8); Alkaline Phosphatase 41 U/L (40-110); Anion Gap 19 mmol/L (10-20); BUN (Urea Nitrogen) 21 mg/dL (9.8-20.1); Bilirubin, Total 1.3 mg/dL (0.2-1.2); Calc. Creatinine Clearance 0 mL/min (70-130); Calcium 9.9 mg/dL (7.8-10.44); Carbon Dioxide 26 mmol/L (23-31); Chloride 97 mmol/L (98-107); Estimated GFR 65; Globulin 3.5 g/dL (2.4-3.5); Glucose 182 mg/dL (83-110); Lipase 13 U/L (8-78); Potassium 3.9 mmol/L (3.5-5.1); Sodium 138 mmol/L (136-145)
[2022-05-08] MEDS ORDERED: Aspirin 81 mg Enteric Coated Tablet ONE (10:57)
[2022-05-08] MEDS ORDERED: Aspirin 325 MG TAB ONE (10:57)
[2022-05-08 11:44] LABS: Bilirubin Negative (Negative); Blood, Urine Trace (Negative); Clarity Clear (Clear); Glucose, Urine (Dipstick) Greater than 1000 mg/dL (Negative); Ketone, Urine 60 mg/dL (Negative); Leukocyte 75 Leu/uL (Negative); Nitrite 2+ (Negative); Protein, Urine (Dipstick) Negative (Neg-Trace); RBC/HPF 0-3 HPF (0-3); Specific Gravity, Urine 1.028 (1.002-1.036); Squamous Epithelial 0-3 HPF (0-3); Urobilinogen Normal mg/dL (Less than 2); pH, Urine 5.5 (5.0-9.0)
[2022-05-08 11:52] LABS: Bacteria/HPF 4+ HPF (None Seen); WBC/HPF 21-50 HPF (0-3)
[2022-05-08] MEDS ORDERED: Acetaminophen 325 MG TAB PO PRN (12:54)
[2022-05-08] MEDS ORDERED: Dextrose 5% in Water 1,000 ML IV PRN (12:55)
[2022-05-08] MEDS ORDERED: Dextrose 50% Abboject 50 ML SYRINGE SLOW IVP PRN (12:55)
[2022-05-08] MEDS ORDERED: HumaLOG 300 UNITS/3 ML VIAL SC PRN ×2 (12:55)
[2022-05-08] MEDS ORDERED: hydrALAZINE 20 MG/ML VIAL SLOW IVP PRN (12:56)
[2022-05-08] MEDS ORDERED: Electrolyte Replacement Protocol 1 EACH FS SCH (13:15)
[2022-05-08] MEDS ORDERED: Electrolyte Replacement Protocol FS PRN (13:15)
[2022-05-08 13:31] LABS: SARS-CoV-2 NAA Rapid Test Not Detected (NotDetected)
[2022-05-08 14:06] LABS: Magnesium 2.3 mg/dL (1.6-2.6)
[2022-05-08 17:17] VITALS: BMI 34.2
[2022-05-08 18:41] LABS: Bilirubin Negative (Negative); Blood, Urine Negative (Negative); CAUTI Indications for Culture Alt mental st,lethar; Clarity Clear (Clear); Glucose, Urine (Dipstick) Greater than 1000 mg/dL (Negative); Ketone, Urine 20 mg/dL (Negative); Leukocyte 75 Leu/uL (Negative); Nitrite 2+ (Negative); Protein, Urine (Dipstick) Negative (Neg-Trace); RBC/HPF 0-3 HPF (0-3); Specific Gravity, Urine 1.023 (1.002-1.036); Squamous Epithelial 0-3 HPF (0-3); Urobilinogen Normal mg/dL (Less than 2); WBC/HPF 21-50 HPF (0-3)
[2022-05-08 18:43] LABS: Bacteria/HPF 1+ HPF (None Seen)
[2022-05-08 18:44] LABS: Urine Culture Reflex Yes Yes
[2022-05-08] MEDS ORDERED: Rosuvastatin 20 MG TAB PO SCH (21:00)
[2022-05-08] MEDS ORDERED: cefTRIAXone\\ROCEPHIN 1 GM in Sodium Chloride 0.9% 100 ML IVPB SCH (21:30)
[2022-05-08] MEDS ORDERED: Benzonatate 100 MG CAP PO PRN (23:16)
[2022-05-08] MEDS ORDERED: GUAIFENESIN SF SOLN 200 MG/10 ML UDCUP PO PRN (23:16)
[2022-05-08] MEDS ORDERED: Cepastat Lozenges 1 LOZ PO PRN (23:17)
[2022-05-09] MEDS ORDERED: Dextromethorphan Polistirex 30 MG/5 ML (89 ML BOTTLE) PO PRN (02:15)
[2022-05-09 06:29] LABS: #Lymphocytes 0.8 thou/uL (1.20-3.40); #Monocytes 0.5 thou/uL (0.11-0.59); #Neutrophils 3.1 thou/uL (1.40-6.50); %Basophils 0.2 % (0.0-1.0); %Eosinophils 0.5 % (0.0-10.0); %Lymphocytes 17.3 % (21.0-51.0); %Monocytes 12.1 % (0.0-10.0); Hemoglobin 13.8 g/dL (12.0-16.0); Mean Corpuscular HGB CONC 33.9 g/dL (32.0-36.0); Mean Corpuscular Hemoglobin 30.4 pg (27.0-31.0); Mean Corpuscular Volume 89.8 fl (78.0-98.0); Mean Platelet Volume 7.8 fL (7.4-10.4); Platelet Count 97 10x3/uL (130-400); RBC Distribution Width 14.1 % (11.5-14.5); Red Blood Cell (RBC) Count 4.53 mill/uL (4.20-5.40); White Blood Cell (WBC) Count 4.4 10x3/uL (4.8-10.8)
[2022-05-09 06:30] LABS: Hemoglobin A1c 7.3 % (4.0-6.0)
[2022-05-09 06:45] LABS: Anion Gap 20 mmol/L (10-20); BUN (Urea Nitrogen) 24 mg/dL (9.8-20.1); Calc. Creatinine Clearance 72 mL/min (70-130); Calcium 9.6 mg/dL (7.8-10.44); Carbon Dioxide 21 mmol/L (23-31); Cardiac Risk 4.2 (Less than 4.5); Chloride 98 mmol/L (98-107); Cholesterol 113 mg/dl (< 200 Desired); Estimated GFR 59; Glucose 182 mg/dL (83-110); HDL Cholesterol 27 mg/dL (>60 Neg Risk); LDL Cholesterol, Calculated 32 mg/dL; Potassium 3.7 mmol/L (3.5-5.1); Sodium 135 mmol/L (136-145); Triglycerides 272 mg/dL (Less than 150)
[2022-05-09] MEDS ORDERED: Enoxaparin Sodium 40 MG/0.4 ML SYRINGE SC SCH (09:00)
[2022-05-09] MEDS ORDERED: Aspirin 81 mg Enteric Coated Tablet PO SCH (09:00)
[2022-05-09 12:15] VITALS: TEMP 98.1
[2022-05-09 12:45] VITALS: BP 128/62
== END 2022-05-09 15:25 | disposition home or self-care (01) ==
LOC: ERS 09:52 → NEURO 12:43 → ERHOLD 12:43 → NEURO 15:59
PROVIDERS: ADMIT Emergency Medicine; ATTEND Emergency Medicine
DX: G45.9 Transient cerebral ischemic attack, unspecified (principal); N30.01 Acute cystitis with hematuria; E78.2 Mixed hyperlipidemia; I12.9 Hypertensive chronic kidney disease with stage 1 through stage 4 chronic kidney disease, or unspecified chronic kidney disease; E11.22 Type 2 diabetes mellitus with diabetic chronic kidney disease; N18.9 Chronic kidney disease, unspecified; E03.9 Hypothyroidism, unspecified; R05.9 Cough, unspecified; K21.9 Gastro-esophageal reflux disease without esophagitis; M48.02 Spinal stenosis, cervical region; I08.3 Combined rheumatic disorders of mitral, aortic and tricuspid valves; Z79.4 Long term (current) use of insulin; Z79.82 Long term (current) use of aspirin; Z79.84 Long term (current) use of oral hypoglycemic drugs; Z79.85 Long-term (current) use of injectable non-insulin antidiabetic drugs; Z79.890 Hormone replacement therapy; Z79.899 Other long term (current) drug therapy; Z88.1 Allergy status to other antibiotic agents; Z20.822 Contact with and (suspected) exposure to COVID-19
CPT/HCPCS: 0240U; 70450; 70551; 71045; 80048; 80053; 80061; 81001; 82962 ×2; 83036; 83690; 83735; 84443; 84484 ×2; 85025 ×2; 87040; 87077; 87086; 87186; 93005; 93306; 93880; 95816; 95819; 95957; 99285; 36415; 36416; 81003; 81015; 96374; G0378; J0696; J1815; J3490

== ENCOUNTER 2023-04-04 09:57 | Outpatient (CLI) | payer MEDICARE, BC | END 2023-04-04 09:58 | disposition home or self-care (01) | LOC: BICMAMMO 09:57 | PROVIDERS: ATTEND Family Medicine | DX: Z12.31 Encounter for screening mammogram for malignant neoplasm of breast (principal) | CPT/HCPCS: 77063; 77067 ==

== ENCOUNTER 2023-10-03 07:18 | Day surgery (SDC) | payer MEDICARE ==
[2023-09-22 13:05] VITALS: BMI 31.6
[2023-10-03] MEDS ORDERED: Lidocaine 1% PF 5 ML VIAL ONE (08:11)
[2023-10-03] MEDS ORDERED: fentaNYL PF 100 MCG/2 ML SYRINGE ONE (08:11)
[2023-10-03] MEDS ORDERED: Rocuronium Bromide 10 MG/ML (10ML VIAL) ONE (08:11)
[2023-10-03] MEDS ORDERED: Ondansetron PF 4 MG/2 ML Vial ONE (08:11)
[2023-10-03] MEDS ORDERED: PROPOFOL 20 ML ONE (08:11)
[2023-10-03] MEDS ORDERED: SUGAMMADEX SODIUM 200 MG/2 ML VIAL ONE ×3 (08:11→10:41)
[2023-10-03] MEDS ORDERED: PHENYLEPHRINE-NS 100 MCG/ML 10 ML SYRINGE ONE (08:11)
[2023-10-03] MEDS ORDERED: Sodium Chloride 0.9% 100 ML ONE (08:34)
[2023-10-03] MEDS ORDERED: cefTRIAXone (ROCEPHIN) 1 GM VIAL ONE (08:34)
[2023-10-03] MEDS ORDERED: Dexamethasone 20 MG/5 ML VIAL ONE (10:14)
[2023-10-03] MEDS ORDERED: fentaNYL 50 mcg/mL 1 mL Vial ONE (11:33)
[2023-10-03] MEDS ORDERED: Phenazopyridine HCl 100 MG TAB ONE ×2 (11:51→11:52)
[2023-10-03] MEDS ORDERED: Oxybutynin 5 MG TAB ONE (11:51)
[2023-10-03] MEDS ORDERED: HYDROcodone/Acetaminophen 5/325 mg Tablet ONE (13:02)
== END 2023-10-03 13:55 | disposition home or self-care (01) ==
LOC: SDC 07:18
PROVIDERS: ATTEND Urology
PROC: 0TBB8ZZ Excision of Bladder, Via Natural or Artificial Opening Endoscopic (ICD-10-PCS; principal; 2023-10-03)
DX: C67.9 Malignant neoplasm of bladder, unspecified (principal); N32.89 Other specified disorders of bladder; N39.3 Stress incontinence (female) (male); R35.1 Nocturia; N81.11 Cystocele, midline; K21.9 Gastro-esophageal reflux disease without esophagitis; K44.9 Diaphragmatic hernia without obstruction or gangrene; E11.65 Type 2 diabetes mellitus with hyperglycemia; G47.33 Obstructive sleep apnea (adult) (pediatric); G89.29 Other chronic pain; M19.011 Primary osteoarthritis, right shoulder; R60.0 Localized edema; I51.9 Heart disease, unspecified; J44.9 Chronic obstructive pulmonary disease, unspecified; E66.01 Morbid (severe) obesity due to excess calories; Z88.1 Allergy status to other antibiotic agents; Z68.32 Body mass index [BMI] 32.0-32.9, adult; Z79.899 Other long term (current) drug therapy
CPT/HCPCS: 52235; 82962; A4333; J3010; J9280; 36416; 88305; 88341; 88342; J0696; J1100; J2405; J2704; J3490

== ENCOUNTER 2023-10-31 15:18 | Outpatient (CLI) | payer MEDICARE ==
[2023-10-31 16:43] LABS: PTT 26.9 sec (22.0-33.0)
[2023-10-31 16:45] LABS: Bilirubin Neg (Negative); Blood, Urine Negative (Negative); Clarity Clear (Clear); Glucose, Urine (Dipstick) >=1000 mg/dL (Negative); Ketone, Urine Negative (Negative); Leukocyte 25 (Negative); Nitrite Negative (Negative); Protein, Urine (Dipstick) Negative (Neg-Trace); Urobilinogen Normal mg/dL (Less than 2)
[2023-10-31 16:49] LABS: Hematocrit 42.7 % (34.9-44.5); Hemoglobin 14.2 g/dL (12.0-15.5); Mean Corpuscular HGB CONC 33.3 g/dL (32.0-36.0); Mean Corpuscular Volume 87.3 fL (81.6-98.3); Mean Platelet Volume 10.2 fL (7.4-10.4); Platelet Count 129 10x3/uL (150-450); RBC Distribution Width 14.5 % (11.5-14.5); Red Blood Cell (RBC) Count 4.89 10x6/uL (3.90-5.03); White Blood Cell (WBC) Count 3.7 10x3/uL (3.5-10.5)
[2023-10-31 17:08] LABS: Anion Gap 12 mmol/L (10-20); BUN (Urea Nitrogen) 24 mg/dL (9.8-20.1); Calc. Creatinine Clearance 0 mL/min (70-130); Carbon Dioxide 27 mmol/L (23-31); Chloride 103 mmol/L (98-107); Estimated GFR 50; Glucose 278 mg/dL (83-110); Potassium 4.4 mmol/L (3.5-5.1); Sodium 138 mmol/L (136-145)
[2023-10-31 17:27] LABS: Bacteria/HPF Rare-Few HPF (None Seen); RBC/HPF None Seen HPF (0-3); Squamous Epithelial None Seen HPF (0-3); WBC/HPF 0-3 HPF (0-3)
== END 2023-10-31 15:19 | disposition home or self-care (01) ==
LOC: LABBT 15:18
PROVIDERS: ATTEND Urology
DX: Z01.818 Encounter for other preprocedural examination (principal); C67.8 Malignant neoplasm of overlapping sites of bladder
CPT/HCPCS: 80048; 81001; 85027; 85610; 85730; 87086; 93005; 93010

== ENCOUNTER 2023-11-14 09:13 | Day surgery (SDC) | payer MEDICARE ==
[2023-10-31 16:06] VITALS: BMI 31.6
[2023-11-14] MEDS ORDERED: Sodium Chloride 0.9% 100 ML ONE (11:44)
[2023-11-14] MEDS ORDERED: cefTRIAXone (ROCEPHIN) 1 GM VIAL ONE (11:44)
[2023-11-14] MEDS ORDERED: Rocuronium Bromide 10 MG/ML (10ML VIAL) ONE (12:00)
[2023-11-14] MEDS ORDERED: PROPOFOL 20 ML ONE (12:00)
[2023-11-14] MEDS ORDERED: Lidocaine 1% PF 5 ML VIAL ONE (12:00)
[2023-11-14] MEDS ORDERED: fentaNYL PF 100 MCG/2 ML SYRINGE ONE (12:00)
[2023-11-14] MEDS ORDERED: Glycopyrrolate 0.2 MG/ML 5 ML SYRINGE ONE (12:04)
[2023-11-14] MEDS ORDERED: SUGAMMADEX SODIUM 200 MG/2 ML VIAL ONE (12:31)
[2023-11-14] MEDS ORDERED: Ondansetron PF 4 MG/2 ML Vial ONE (12:33)
[2023-11-14] MEDS ORDERED: Dexamethasone 20 MG/5 ML VIAL ONE (12:33)
[2023-11-14] MEDS ORDERED: Oxybutynin 5 MG TAB ONE (13:07)
[2023-11-14] MEDS ORDERED: Phenazopyridine HCl 100 MG TAB ONE (13:07)
[2023-11-14] MEDS ORDERED: HYDROcodone/Acetaminophen 5/325 mg Tablet ONE (15:04)
== END 2023-11-14 16:00 | disposition home or self-care (01) ==
LOC: SDC 09:13
PROVIDERS: ATTEND Urology
PROC: 0TBB8ZZ Excision of Bladder, Via Natural or Artificial Opening Endoscopic (ICD-10-PCS; principal; 2023-11-14)
DX: C67.8 Malignant neoplasm of overlapping sites of bladder (principal); I12.9 Hypertensive chronic kidney disease with stage 1 through stage 4 chronic kidney disease, or unspecified chronic kidney disease; N18.30 Chronic kidney disease, stage 3 unspecified; N39.3 Stress incontinence (female) (male); R35.1 Nocturia; N81.11 Cystocele, midline; K21.9 Gastro-esophageal reflux disease without esophagitis; K44.9 Diaphragmatic hernia without obstruction or gangrene; E11.65 Type 2 diabetes mellitus with hyperglycemia; G47.33 Obstructive sleep apnea (adult) (pediatric); G89.29 Other chronic pain; M19.011 Primary osteoarthritis, right shoulder; J44.9 Chronic obstructive pulmonary disease, unspecified; E66.01 Morbid (severe) obesity due to excess calories; Z68.30 Body mass index [BMI] 30.0-30.9, adult; Z88.1 Allergy status to other antibiotic agents; Z90.710 Acquired absence of both cervix and uterus; Z79.4 Long term (current) use of insulin; Z79.899 Other long term (current) drug therapy
CPT/HCPCS: 52235; 82962; J0696; J1100; J2405; J2704; J3490; 36416; 88305; 88341; 88342

== ENCOUNTER 2024-02-16 07:59 | Outpatient (CLI) | payer MEDICARE ==
[2024-02-16] MEDS ORDERED: Regadenoson 0.4 MG/5 ML SYRINGE ONE (10:17)
== END 2024-02-16 08:00 | disposition home or self-care (01) ==
LOC: NM 07:59
PROVIDERS: ATTEND Physician Assistant Medical
DX: R06.02 Shortness of breath (principal)
CPT/HCPCS: 78452; 93017; A9502; J2785 ×2

== ENCOUNTER 2025-02-14 08:59 | Outpatient (CLI) | payer MEDICARE ==
[2025-02-14] MEDS ORDERED: Iopamidol 370 76% 100 ML VIAL ONE (13:22)
== END 2025-02-14 09:00 | disposition home or self-care (01) ==
LOC: CT 08:59
PROVIDERS: ATTEND Internal Medicine Hematology & Oncology
DX: C67.8 Malignant neoplasm of overlapping sites of bladder (principal); D70.8 Other neutropenia; R16.1 Splenomegaly, not elsewhere classified; J84.10 Pulmonary fibrosis, unspecified; I70.0 Atherosclerosis of aorta; N28.1 Cyst of kidney, acquired; R93.421 Abnormal radiologic findings on diagnostic imaging of right kidney; I70.8 Atherosclerosis of other arteries; M47.819 Spondylosis without myelopathy or radiculopathy, site unspecified; Z98.890 Other specified postprocedural states; Z90.710 Acquired absence of both cervix and uterus
CPT/HCPCS: 71260; 74177

== ENCOUNTER 2025-02-15 15:05 | Outpatient (CLI) | payer MEDICARE | END 2025-02-15 15:06 | disposition home or self-care (01) | LOC: SCSMRI 15:05 | PROVIDERS: ATTEND Family Medicine | DX: R29.898 Other symptoms and signs involving the musculoskeletal system (principal); M21.372 Foot drop, left foot; I67.82 Cerebral ischemia; R90.82 White matter disease, unspecified; M48.07 Spinal stenosis, lumbosacral region; M48.061 Spinal stenosis, lumbar region without neurogenic claudication | CPT/HCPCS: 70551; 72148 ==